=== PATIENT | male | born 1985 | race Caucasian/White ===

== ENCOUNTER 2021-10-20 14:58 | Emergency (ER) | payer BC ==
[2021-10-20 15:35] LABS: BASOPHILS # (AUTO) 0.1 10^3/uL (0.0-0.1); BASOPHILS % (AUTO) 0.3 %; EOSINOPHILS % (AUTO) 0.1 %; HCT - HEMATOCRIT 42.5 % (42.0-52.0); LYMPHOCYTES # (AUTO) 1.3 10^3/uL (1.5-3.5); LYMPHOCYTES % (AUTO) 7.4 %; MEAN CORPUSCULAR HEMOGLOBIN 29.5 pg (27.0-31.0); MEAN CORPUSCULAR HGB CONC 35.3 g/dL (32.0-36.0); MEAN CORPUSCULAR VOLUME 83.7 fL (80.0-94.0); MONOCYTES % (AUTO) 5.8 %; NEUTROPHILS # (AUTO) 15.2 10^3/uL (1.5-6.6); NEUTROPHILS % (AUTO) 86.1 %; PLT - PLATELET COUNT 192 10^3/uL (130-450); RED BLOOD COUNT 5.08 10^6/uL (4.70-6.10); RED CELL DISTRIBUTION WIDTH 11.9 % (12.0-15.0); WHITE BLOOD COUNT 17.6 x10^3/uL (4.8-10.8)
[2021-10-20 15:41] LABS: BILIRUBIN,URINE NEGATIVE (NEGATIVE); GLUCOSE, URINE (UA) NEGATIVE (NEGATIVE); KETONES,URINE (UA) 15 mg/dL (NEGATIVE); LEUKOCYTE ESTERASE, URINE NEGATIVE (NEGATIVE); NITRITE,URINE NEGATIVE (NEGATIVE); OCCULT BLOOD,URINE MODERATE (NEGATIVE); PROTEIN,URINE NEGATIVE (NEGATIVE); UROBILINOGEN,URINE 0.2 (NORMAL) E.U./dL (NORMAL)
[2021-10-20 15:47] LABS: CLARITY,URINE HAZY (CLEAR)
[2021-10-20 15:48] LABS: ALBUMIN 4.4 g/dL (3.2-5.5); ALBUMIN/GLOBULIN RATIO 1.5 (1.0-2.2); BILIRUBIN,TOTAL 1.1 mg/dL (0.2-1.0); CALCIUM 9.1 mg/dL (8.5-10.3); CREATININE 1.3 mg/dL (0.6-1.2); POTASSIUM 3.5 mmol/L (3.5-5.0); TOTAL PROTEIN 7.3 g/dL (6.7-8.2)
[2021-10-20 16:10] LABS: BACTERIA,URINE None Seen /HPF (None Seen); SQUAMOUS EPITHELIAL CELL,UR NONE SEEN (<= Few); WBC,URINE 0-3 /HPF (0-3)
--- NOTE | 2021-10-20 16:12 | ED Physician Documentation ---
PD HPI ABD PAIN - Stated complaint Stated Complaint: ABD PAIN - Chief complaint Chief Complaint: Abd Pain - History obtained from History obtained from: Patient - History of Present Illness Pain level max: 10 Pain level now: 10 Quality: Aching, Pain Associated symptoms: Nausea, Vomiting. No: Fever, Diarrhea, Constipation, Dysu naomy, Hematuria - Additional information Additional information: Patient is a 36-year-old male who presents to the emergency department with right flank pain. Started today. He has never had similar symptoms. The pain is 10 out of 10. Right flank. Nothing makes it better or worse. Nonradiating. No fever he states he has had nausea and vomiting from the pain. No hematuria or dysuria. There is a family history of kidney stones. He has never had a kidney stone Review of Systems Constitutional: denies: Fever, Chills Respiratory: denies: Cough GI: denies: Vomiting, Diarrhea Skin: denies: Rash Musculoskeletal: denies: Neck pain, Back pain Neurologic: denies: Headache PD PAST MEDICAL HISTORY - Past Medical History Past Medical History: Yes Cardiovascular: Hypertension - Past Surgical History Past Surgical History: No - Present Medications Home Medications: Ambulatory Orders Medication Instructions Recorded Confirmed lisinopriL [Lisinopril] 20 mg PO DAILY 10/20/21 10/20/21 - Allergies Allergies/Adverse Reactions: Allergies Allergy/AdvReac Type Severity Reaction Status Date / Time No Known Drug Allergies Allergy Verified 10/20/21 15:14 - Living Situation Living Situation: reports: With family Living Arrangement: reports: At home PD ED PE NORMAL - Vitals Vital signs reviewed: Yes - General General: Alert and oriented X 3, No acute distress, Well developed/nourished - HEENT HEENT: PERRL, Moist mucous membranes - Neck Neck: Supple, no meningeal sign - Cardiac Cardiac: RRR - Respiratory Respiratory: No respiratory distress, Clear bilaterally - Abdomen Abdomen: Normal bowel sounds, Soft, Non tender, Non distended - Back Back: No CVA TTP - Derm Derm: Warm and dry - Neuro Neuro: Alert and oriented X 3 - Psych Psych: Normal mood, Normal affect Results - Vitals Vitals: Vital Signs - 24 hr 10/20/21 10/20/21 15:15 20:14 Temperature 36.4 C L Heart Rate 72 75 Respiratory 18 16 Rate Blood Pressure 136/93 H 140/83 H O2 Saturation 99 99 Oxygen O2 Source Room air - Labs Labs: Laboratory Tests 10/20/21 10/20/21 10/20/21 15:23 15:31 15:31 WBC 17.6 H RBC 5.08 Hgb 15.0 Hct 42.5 MCV 83.7 MCH 29.5 MCHC 35.3 RDW 11.9 L Plt Count 192 MPV 10.0 Neut # (Auto) 15.2 H Lymph # (Auto) 1.3 L [place] # (Auto) 1.0 Eos # (Auto) 0.0 Baso # (Auto) 0.1 Absolute Nucleated RBC 0.00 Nucleated RBC % 0.0 Sodium 135 Potassium 3.5 Chloride 97 L Carbon Dioxide 26 Anion Gap 12.0 BUN 12 Creatinine 1.3 H Estimated GFR (MDRD) 62 L Glucose 140 H Calcium 9.1 Total Bilirubin 1.1 H AST 22 ALT 20 Alkaline Phosphatase 32 L Total Protein 7.3 Albumin 4.4 Globulin 2.9 Albumin/Globulin Ratio 1.5 Lipase 43 Urine Color YELLOW Urine Clarity HAZY Urine pH 6.0 Ur Specific [place] 1.020 Urine Protein NEGATIVE Urine Glucose (UA) NEGATIVE Urine Ketones 15 H Urine Occult Blood MODERATE H Urine Nitrite NEGATIVE Urine Bilirubin NEGATIVE Urine Urobilinogen 0.2 (NORMAL) Ur Leukocyte Esterase NEGATIVE Urine RBC 11-25 H Urine WBC 0-3 Ur Squamous Epith Cells NONE SEEN Urine Bacteria None Seen Ur Microscopic Review INDICATED Urine Culture Comments NOT INDICATED - Rads (name of study) CT abdomen and pelvis Radiology: Final report received, EMP read contemporaneously, See rad report PD MEDICAL DECISION MAKING - ED course Complexity details: reviewed results, re-evaluated patient, considered differential, d/w patient ED course: 36-year-old male with right flank pain concerning for ureteral stone. The CT scanner here is under repairs and unavailable. Therefore the patient was sent to [facility] in [place] for the CT scan. His CT scan appears to show a 2 mm recently passed ureteral stone. Patient's pain resolved on the way to [facility]. He is currently pain-free upon return. Patient is well- appearing, nontoxic. Afebrile. No UTI. We will continue supportive care and have him follow-up with his doctor for further care. Patient counseled regarding signs and symptoms for which I believe and urgent re-evaluation would be necessary. Patient with good understanding of and agreement to plan and is comfortable going home at this time This document was made in part using voice recognition software. While efforts are made to proofread this document, sound alike and grammatical errors may occur. Departure - Departure Disposition: 01 Home, Self Care Clinical Impression: Ureteral calculus, right Condition: Good Instructions: ED Stone Renal Passed Follow-Up: Your,doctor in 1 week [Other] Comments: Please follow-up with your doctor for further care as needed. You appear to have had a 2 mm right-sided ureteral stone that passed into the bladder. There are no other renal stones at this time on your CT scan. Please return if you worsen. Discharge Date/Time: 10/20/21 20:28
[2021-10-20] MEDS ORDERED: KETOROLAC 30 MG/ML VIAL IVP STA (16:49)
[2021-10-20] MEDS ORDERED: ONDANSETRON 4 MG/2 ML VIAL IVP STA (16:49)
[2021-10-20] MEDS ORDERED: SODIUM CHLORIDE 0.9% 1,000 ML IV STA (16:49)
[2021-10-20] MEDS ORDERED: HYDROmorphone 1 MG/ML CARPUJECT IVP STA (16:49)
[2021-10-20 20:16] VITALS: BP 140/83
== END 2021-10-20 20:28 | disposition home or self-care (01) ==
LOC: ED 14:58
DX: N20.1 Calculus of ureter (principal)
CPT/HCPCS: 36415; 80053; 81001; 83690; 85025; 96374; 99282; 99283; J1170; 81003; 87086

== ENCOUNTER 2021-10-20 18:03 | Outpatient (CLI) | payer BC | END 2021-10-20 18:04 | disposition short-term general hospital (02) | LOC: EMS 18:03 | PROVIDERS: ATTEND Emergency Medicine | DX: R10.31 Right lower quadrant pain (principal); R10.2 Pelvic and perineal pain; R11.2 Nausea with vomiting, unspecified | CPT/HCPCS: A0425; A0428 ==

== ENCOUNTER 2021-10-20 19:20 | Outpatient (CLI) | payer BC | END 2021-10-20 19:21 | disposition critical access hospital (66) | LOC: EMS 19:20 | PROVIDERS: ATTEND Emergency Medicine | DX: R10.31 Right lower quadrant pain (principal); R11.2 Nausea with vomiting, unspecified | CPT/HCPCS: A0425; A0428 ==